=== PATIENT | female | born 1995 | race African-American/Black ===

== ENCOUNTER 2020-10-10 08:15 | Emergency (ER) | payer BC ==
[~2020-10-10] VITALS: Ht 160 cm; Wt 68.0 kg
[2020-10-10] MEDS ORDERED: PRENATAL TABLE1 EAC1 PO (11:34)
== END 2020-10-10 11:45 | disposition home or self-care (01) ==
LOC: ED 08:15
DX: O20.8 Other hemorrhage in early pregnancy (principal); O99.281 Endocrine, nutritional and metabolic diseases complicating pregnancy, first trimester; E86.0 Dehydration; Z3A.01 Less than 8 weeks gestation of pregnancy; Z87.891 Personal history of nicotine dependence
CPT/HCPCS: 76801; 76817; 80053; 81001; 83690; 84702; 84703; 85025; 86900; 86901; 87210; 87491; 87591; 99284-25